=== PATIENT | male | born 1935 | race Caucasian/White ===

== ENCOUNTER → 2021-01-21 08:50 | Outpatient (BNVA) | payer OTHER, SELFPAY | PROVIDERS: Family Provider Family Medicine; Referring Provider Family Medicine; Visit Provider Specialist | DX: M17.11 Unilateral primary osteoarthritis, right knee (principal) | CPT/HCPCS: 73560; 73565 ==

== ENCOUNTER 2021-08-19 08:53 | Outpatient (CLI) | payer OTHER, SELFPAY ==
--- NOTE | 2021-08-19 09:01 | US_ITS ---
WS: [id number] ULTRASOUND ABDOMEN LIMITED CLINICAL INFORMATION: ELEVATED MATIAS COMPARISON: None. FINDINGS: Liver Size: Enlarged Craniocaudal length: 16.6 cm. Echogenicity: Coarse Surface nodularity: None. Mass (size and location): None. Bile ducts Intrahepatic ducts: Normal. Common bile duct diameter: 0.5 cm. Gallbladder Normal. Gallstones: None. Gallbladder sludge: None. Gallbladder wall thickening: None. Pericholecystic fluid: None. Sonographic Grajeda sign: Absent. Pancreas Not well seen due to bowel gas Right kidney: Several cortical cysts the largest measuring 9.4 x 8.3 x 4.8 cm along the inferior pole Hydronephrosis: None. Size: 11.3 cm x 5.4 cm x 6.2 cm. 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 US/US abdomen limited [id number] IMPRESSION: 1. Mild hepatomegaly diffuse fatty infiltration. 2. Normal gallbladder and common bile duct. 3. No hydronephrosis in RIGHT kidney. 4. 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 History of endoleak repair. Patient reportedly being followed in [place] f or endoleak. This can be further evaluated with CTA.
== END 2021-08-19 08:54 | disposition home or self-care (01) ==
LOC: RAD 08:54
PROVIDERS: Family Provider Family Medicine; Visit Provider Family Medicine
DX: R17 Unspecified jaundice (principal)
CPT/HCPCS: 76705

== ENCOUNTER → 2022-01-29 07:47 | Outpatient (BNVA) | payer MEDICARE, SELFPAY | PROVIDERS: Family Provider Family Medicine; PCP Family Medicine; Visit Provider Family Medicine | DX: Z00.00 Encounter for general adult medical examination without abnormal findings (principal); I10 Essential (primary) hypertension; E11.9 Type 2 diabetes mellitus without complications | CPT/HCPCS: 80053; 80061; 83036; 84443 ==

== ENCOUNTER → 2022-03-24 09:00 | Outpatient (BNVA) | payer OTHER, SELFPAY | PROVIDERS: Family Provider Family Medicine; PCP Family Medicine; Visit Provider Podiatrist Foot & Ankle Surgery | DX: E11.9 Type 2 diabetes mellitus without complications (principal); B35.1 Tinea unguium; G62.9 Polyneuropathy, unspecified; M20.41 Other hammer toe(s) (acquired), right foot; M20.42 Other hammer toe(s) (acquired), left foot; Z79.84 Long term (current) use of oral hypoglycemic drugs | CPT/HCPCS: 11721; 99204 ==

== ENCOUNTER → 2022-06-02 08:47 | Outpatient (BNVA) | payer OTHER, SELFPAY | PROVIDERS: Family Provider Family Medicine; PCP Family Medicine; Visit Provider Podiatrist Foot & Ankle Surgery | DX: E11.8 Type 2 diabetes mellitus with unspecified complications (principal); L98.9 Disorder of the skin and subcutaneous tissue, unspecified; B35.1 Tinea unguium; G62.9 Polyneuropathy, unspecified; M20.41 Other hammer toe(s) (acquired), right foot; M20.42 Other hammer toe(s) (acquired), left foot; Z79.84 Long term (current) use of oral hypoglycemic drugs | CPT/HCPCS: 11721 ==

== ENCOUNTER → 2022-08-11 09:48 | Outpatient (BNVA) | payer OTHER, SELFPAY | PROVIDERS: Family Provider Family Medicine; PCP Family Medicine; Visit Provider Podiatrist Foot & Ankle Surgery | DX: E11.9 Type 2 diabetes mellitus without complications (principal); B35.1 Tinea unguium; G62.9 Polyneuropathy, unspecified; M20.41 Other hammer toe(s) (acquired), right foot; M20.42 Other hammer toe(s) (acquired), left foot; Z79.84 Long term (current) use of oral hypoglycemic drugs | CPT/HCPCS: 11721 ==

== ENCOUNTER → 2022-08-12 08:22 | Outpatient (BNVA) | payer MEDICARE, SELFPAY | PROVIDERS: Family Provider Family Medicine; PCP Family Medicine; Visit Provider Family Medicine | DX: E11.9 Type 2 diabetes mellitus without complications (principal); I10 Essential (primary) hypertension; E03.9 Hypothyroidism, unspecified; E78.5 Hyperlipidemia, unspecified; M17.11 Unilateral primary osteoarthritis, right knee | CPT/HCPCS: 80053; 80061; 83036; 84443; 85025 ==

== ENCOUNTER → 2022-08-27 09:47 | Outpatient (BNVA) | payer MEDICARE, SELFPAY | PROVIDERS: Family Provider Family Medicine; PCP Family Medicine; Visit Provider Family Medicine | DX: C61 Malignant neoplasm of prostate (principal); E11.9 Type 2 diabetes mellitus without complications; E03.9 Hypothyroidism, unspecified; E78.5 Hyperlipidemia, unspecified | CPT/HCPCS: 84153 ==

== ENCOUNTER → 2022-10-16 07:56 | Outpatient (BNVA) | payer OTHER, SELFPAY | PROVIDERS: Family Provider Family Medicine; PCP Family Medicine; Visit Provider Podiatrist Foot & Ankle Surgery | DX: E11.22 Type 2 diabetes mellitus with diabetic chronic kidney disease (principal); Z79.84 Long term (current) use of oral hypoglycemic drugs; B35.1 Tinea unguium; G62.9 Polyneuropathy, unspecified; M20.41 Other hammer toe(s) (acquired), right foot; M20.42 Other hammer toe(s) (acquired), left foot | CPT/HCPCS: 11721 ==

== ENCOUNTER → 2022-10-29 07:57 | Outpatient (BNVA) | payer OTHER, SELFPAY | PROVIDERS: Family Provider Family Medicine; PCP Family Medicine; Visit Provider Dermatology | DX: L57.0 Actinic keratosis (principal); L82.0 Inflamed seborrheic keratosis; L82.1 Other seborrheic keratosis; L81.4 Other melanin hyperpigmentation | CPT/HCPCS: 11102; 17110; 99213 ==

== ENCOUNTER → 2023-01-05 09:14 | Outpatient (BNVA) | payer OTHER, SELFPAY | PROVIDERS: Family Provider Family Medicine; PCP Family Medicine; Visit Provider Podiatrist Foot & Ankle Surgery | DX: B35.1 Tinea unguium (principal); G62.9 Polyneuropathy, unspecified; M20.41 Other hammer toe(s) (acquired), right foot; M20.42 Other hammer toe(s) (acquired), left foot; E11.42 Type 2 diabetes mellitus with diabetic polyneuropathy; Z79.84 Long term (current) use of oral hypoglycemic drugs | CPT/HCPCS: 11721 ==

== ENCOUNTER → 2023-01-29 08:19 | Outpatient (BNVA) | payer OTHER, SELFPAY | PROVIDERS: Family Provider Family Medicine; PCP Family Medicine | DX: E03.9 Hypothyroidism, unspecified (principal); E11.9 Type 2 diabetes mellitus without complications; E78.5 Hyperlipidemia, unspecified; I10 Essential (primary) hypertension | CPT/HCPCS: 80053; 80061; 83036; 84153; 84443; 85025 ==

== ENCOUNTER 2023-02-24 07:13 | Outpatient (CLI) | payer MEDICARE, SELFPAY ==
--- NOTE | 2023-02-24 07:30 | US_ITS ---
WS: [id number] RIGHT UPPER QUADRANT ULTRASOUND HISTORY: Elevated bilirubin COMPARISON: 08/19/2021 Liver: 17.1 cm in length. Mildly enlarged liver. Coarse echotexture with increased attenuation throug hout the liver. No mass identified. No bile duct dilatation. Portal Vein: Normal hepatopetal flow with monophasic waveform. Gallbladder: Normally distended gallbladder with no stones or wall thickening. CBD: 0.4 cm Pancreas: Normal size and echogenicity. Right kidney: 10.9 cm in length. Normal size kidney. No hydronephrosis. There are 2 cystic masses ass ociated with the RIGHT kidney. The largest measures 6.1 x 3.8 x 5.0 cm. Similar cysts were identified on the study from 2008. Aorta and IVC: Patient has a known large [place] abdominal aneurysm status post endovascular grafting. The graft is patent. No periaortic hematoma. No ascites. IMPRESSION: 1. Mildly enlarged liver with hepatic steatosis. 2. Negative gallbladder. 3. Known large abdominal aortic aneurysm status post endovascular graft repair. Graft is patent. No p eriaortic hematoma. 4. RIGHT renal cyst. No obstruction.
== END 2023-02-24 07:14 | disposition home or self-care (01) ==
LOC: RAD 07:14
PROVIDERS: Family Provider Family Medicine; PCP Family Medicine; Visit Provider Family Medicine
DX: R16.0 Hepatomegaly, not elsewhere classified (principal); R17 Unspecified jaundice; K76.0 Fatty (change of) liver, not elsewhere classified
CPT/HCPCS: 76705

== ENCOUNTER → 2023-03-09 09:15 | Outpatient (BNVA) | payer MEDICARE, SELFPAY | PROVIDERS: Family Provider Family Medicine; PCP Family Medicine; Visit Provider Podiatrist Foot & Ankle Surgery | DX: B35.1 Tinea unguium (principal); G62.9 Polyneuropathy, unspecified; M20.41 Other hammer toe(s) (acquired), right foot; M20.42 Other hammer toe(s) (acquired), left foot; E11.42 Type 2 diabetes mellitus with diabetic polyneuropathy; Z79.84 Long term (current) use of oral hypoglycemic drugs | CPT/HCPCS: 11721 ==

== ENCOUNTER 2023-05-19 08:50 | Emergency (ER) | payer OTHER, SELFPAY ==
[2023-05-19 09:05] VITALS: BP 138/72; PULSE 79; RESP 12; O2SAT 95; BMI 23.7
--- NOTE | 2023-05-19 09:15 | ED_ITS ---
HPI - Extremity Injury (Lower) General: Chief Complaint: Extremity Injury, Lower Stated Complaint[facility] Time Seen by Provider: 05/19/23 09:15 Source: patient and family () Mode of arrival: wheelchair Limitations: no limitations History of Present Illness: Patient is a nice 87-year-old male who presents to ED today along with his for evaluation of a right foot and ankle injury that he sustained 9 days ago. Patient states he was getting up from a recliner when his legs were crossed. He states when he took off walking he then became tangled up in his legs causing him to fall. Patient believes he twisted his right ankle during the fall. He initially thought symptoms were improving thus delaying medical evaluation however thinks he may have re-tweaked his ankle yesterday as it began swelling again. [facility]. Patient reports swelling around the right ankle and foot. He has not noticed any other swelling to the extremity. No calf pain. He has not noticed any color or temperature changes to the extremity. Patient has been ambulatory on the extremity since the fall. MD complaint: ankle injury and foot injury Onset (ago): day(s) (9 days ago) Injury: Right: ankle and foot Place: home Severity: moderate Relieving factors: immobilization Exacerbating factors: weight bearing, movement and palpation Context: fall Associated symptoms: Reports no associated symptoms Other symptoms: none Review of Systems Card: Denies: chest pain Resp: Denies: dyspnea Musc: Reports: extremity pain (R foot), extremity swelling (R foot), joint pain (R ankle) and joint swelling (R ankle); Denies: neck pain, back pain, joint redness or joint warmth Skin/Breast: Denies: rash Neuro: Denies: numbness in extremities, weakness in extremities or sensory changes PFSH ED PFSH: Medical History Macular degeneration Type 2 diabetes mellitus Hypertension Hypothyroidism Hyperlipidemia Surgical History History of meniscectomy of right knee Social History Smoking and tobacco/nicotine status: former use of tobacco/nicotine Physical Exam 2 Const: COMMON NORMALS: no acute distress, average body habitus, patient oriented x3, no limitations, healthy appearing, alert and well nourished GENERAL APPEARANCE: cooperative ORIENTATION/CONSCIOUSNESS: Yes awake, Yes oriented to person, Yes oriented to place and Yes oriented to time Resp: COMMON NORMALS: normal respiratory effort and clear to auscultation bilaterally AUSCULTATION: clear to auscultation bilaterally Cardio: COMMON NORMALS: regular rate and regular rhythm RATE: regular rate RHYTHM: regular rhythm Back/Pelvis: COMMON NORMALS: thoracic and lumbar spine normal to inspection Extremity: COMMON NORMALS: capillary refill normal, no clubbing, cyanosis or edema, no calf tenderness and no pedal edema GENERAL: Yes normal exam except as noted RIGHT LOWER EXTREMITY: Yes foot & digits and Yes foot & digits OTHER: swelling surrounding R ankle joint/dorsal R foot with most of pain being to lateral ankle; cap refill/pulses/sensation all intact; no calf pain/swelling/negative Erica's Neuro: COMMON NORMALS: patient oriented x3, moves all extremities, no focal motor deficits and no sensory deficits noted SENSORIUM/ORIENTATION: Yes alert, Yes oriented to person, Yes oriented to place and Yes oriented to time Skin: COMMON NORMALS: no rashes or lesions noted GENERAL SKIN EXAM: no rashes or lesions noted Course Vital Signs: Vital signs: Vital Signs Pulse Rate 79 05/19/23 09:05 Respiratory Rate 12 05/19/23 09:05 Blood Pressure 138/72 05/19/23 09:05 Pulse Oximetry 95 05/19/23 09:05 Oxygen Delivery Me thod Room Air 05/19/23 09:05 MDM - Extremity Injury (Lower) Medical Decision Making Patient here for continued right ankle and foot pain following a fall 9 days ago. XR of the foot and ankle obtained. On patient's AP view of the right foot, he appears to have a small avulsion fracture off of his lateral malleolus. He is tender here on exam therefore he will be splinted and referred to orthopedics. Patient is legally blind and not a candidate for crutches to be nonweightbearing. He refuses a wheelchair. Patient will be splinted with recommendations for limited weightbearing only as needed. Recommend ice and elevation. He does not want pain medications. Case management will reach out to him and set him up with his orthopedic appointment. Lab Data Radiology Impressions Ankle X-Ray 05/19/23 09:22 IMPRESSION: No acute findings. Foot X-Ray 05/19/23 09:22 IMPRESSION: No acute findings. ADDENDUM: 05/19/23 1010 Addendum to report additional finding of tiny calcific density adjacent to the lateral malleolus, which may represent small cortical avulsion fracture. This was discussed with Ale Beckham at 05/19/2023 10:07 AM [employer]. All radiology interpretation(s) finalized by discharge Discharge Plan Discharge Patient Disposition: Home Clinical Impression: Avulsion fracture of lateral malleolus Qualifiers: Encounter type: initial encounter Fracture type: closed Laterality: right Qualified Code(s): S82.61XA - Displaced fracture of lateral malleolus of right fibula, initial encounter for closed fracture Condition: Stable Prescriptions: No Action metformin 500 mg tablet 500 mg PO BID levothyroxine 75 mcg capsule 75 mcg PO DAILY pioglitazone [Actos] 15 mg tablet 15 mg PO DAILY multivitamin Tablet 1 tab PO DAILY glimepiride 4 mg tablet 4 mg PO BID (DME) Diabetic Shoes with 3 pairs of inserts See Rx Instructions .Route .MEDSUPPLY Qty: 1 0RF Rx Instructions: As directed to HOME lovastatin 10 mg tablet 10 mg PO DAILY clobetasol 0.05 % ointment 1 applic topical BID 14 Days Qty: 60 2RF Rx Instructions: Apply to affected area no more than two weeks per month. Not for face or skin folds. metoprolol succinate 50 mg tablet extended release 24 hr 50 mg PO BID Qty: 180 3RF Discharge Orders: Discharge ED (Routine); Ordered 05/19/23 Ordered By: Ale Pham Referrals: Peter Vidales MD [Primary Care Provider] - Activity Restrictions/Additional Instructions: As we discussed case management should contact you shortly to help set you up with your follow-up orthopedic appointment. I would like you to ice and elevate the extremity to help with swelling. Limited weightbearing on the extremity until told otherwise by orthopedics. Coding Level of Care Code ED Superintendent Custodian Janitor for Zaira Conrad
--- NOTE | 2023-05-19 09:22 | XRR_ITS ---
PROCEDURE INFORMATION: Exam: XR Right Foot Exam date and time: 05/19/2023 9:27 AM Age: 87 years old Clinical indication: Injury or trauma; Fall; Blunt trauma; Foot; Right; Additional info: Injury/fall TECHNIQUE: Imaging protocol: Radiologic exam of the right foot. Views: 3 or more views. COMPARISON: CR XR ankle RT min 3V* [id number] 05/19/2023 9:27 AM FINDINGS: Bones/joints: No acute fracture or dislocation. Joint spacing and alignment are maintained. Small Achilles insertional enthesophyte. Soft tissues: Unremarkable. Vasculature: Peripheral arterial calcifications. XR/XR foot RT min 3V* [id number] IMPRESSION: No acute findings.
--- NOTE | 2023-05-19 09:22 | XRR_ITS ---
PROCEDURE INFORMATION: Exam: XR Right Ankle Exam date and time: 05/19/2023 9:27 AM Age: 87 years old Clinical indication: Injury or trauma; Fall; Blunt trauma; Ankle; Right; Additional info: Injury/fall TECHNIQUE: Imaging protocol: Radiologic exam of the right ankle. Views: 3 or more views. COMPARISON: CR XR foot RT min 3V* [id number] 05/19/2023 9:27 AM FINDINGS: Bones/joints: No acute fracture or dislocation. Joint spacing and alignment are maintained. Small Achilles insertional enthesophyte. Soft tissues: Unremarkable. Vasculature: Peripheral arterial calcifications. XR/XR ankle RT min 3V* [id number] IMPRESSION: No acute findings.
--- NOTE | 2023-05-19 10:42 | DCPLANNER ---
Message sent to Ortho for a follow up Lateral mall avulsion fx
[2023-05-19 10:47] VITALS: PULSE 81; O2SAT 96
== END 2023-05-19 10:49 | disposition home or self-care (01) ==
PROVIDERS: Emergency Provider Physician Assistant; PCP Family Medicine
DX: S82.61XA Displaced fracture of lateral malleolus of right fibula, initial encounter for closed fracture (principal); Z79.84 Long term (current) use of oral hypoglycemic drugs; H35.30 Unspecified macular degeneration; E11.9 Type 2 diabetes mellitus without complications; I10 Essential (primary) hypertension; E78.5 Hyperlipidemia, unspecified; Z87.891 Personal history of nicotine dependence; W01.0XXA Fall on same level from slipping, tripping and stumbling without subsequent striking against object, initial encounter
CPT/HCPCS: 73610; 73630; 99283

== ENCOUNTER → 2023-05-28 11:17 | Outpatient (BNVA) | payer OTHER, SELFPAY | PROVIDERS: PCP Family Medicine; Visit Provider Podiatrist Foot & Ankle Surgery | DX: E11.42 Type 2 diabetes mellitus with diabetic polyneuropathy; B35.1 Tinea unguium; G62.9 Polyneuropathy, unspecified; M20.41 Other hammer toe(s) (acquired), right foot; M20.42 Other hammer toe(s) (acquired), left foot; Z79.84 Long term (current) use of oral hypoglycemic drugs | CPT/HCPCS: 11721; 73590; 99213 ==

== ENCOUNTER → 2023-07-31 08:07 | Outpatient (BNVA) | payer OTHER, SELFPAY | PROVIDERS: PCP Family Medicine; Visit Provider Family Medicine | DX: E11.9 Type 2 diabetes mellitus without complications; E03.9 Hypothyroidism, unspecified; I10 Essential (primary) hypertension; R53.83 Other fatigue; M17.11 Unilateral primary osteoarthritis, right knee; E78.5 Hyperlipidemia, unspecified; B35.1 Tinea unguium; G62.9 Polyneuropathy, unspecified; M20.41 Other hammer toe(s) (acquired), right foot; M20.42 Other hammer toe(s) (acquired), left foot; R17 Unspecified jaundice; J06.9 Acute upper respiratory infection, unspecified | CPT/HCPCS: 80053; 80061; 83036; 84443; 85025 ==

== ENCOUNTER → 2023-08-03 13:29 | Outpatient (BNVA) | payer OTHER, SELFPAY | PROVIDERS: PCP Family Medicine; Visit Provider Podiatrist Foot & Ankle Surgery | DX: B35.1 Tinea unguium (principal); G62.9 Polyneuropathy, unspecified; M20.41 Other hammer toe(s) (acquired), right foot; M20.42 Other hammer toe(s) (acquired), left foot; E11.42 Type 2 diabetes mellitus with diabetic polyneuropathy | CPT/HCPCS: 11721 ==

== ENCOUNTER → 2023-10-12 09:30 | Outpatient (BNVA) | payer OTHER, SELFPAY | PROVIDERS: PCP Family Medicine; Visit Provider Podiatrist Foot & Ankle Surgery | DX: B35.1 Tinea unguium (principal); G62.9 Polyneuropathy, unspecified; M20.41 Other hammer toe(s) (acquired), right foot; M20.42 Other hammer toe(s) (acquired), left foot; E11.42 Type 2 diabetes mellitus with diabetic polyneuropathy; M79.604 Pain in right leg; Z79.84 Long term (current) use of oral hypoglycemic drugs | CPT/HCPCS: 11721 ==

== ENCOUNTER → 2023-12-14 08:59 | Outpatient (BNVA) | payer OTHER, SELFPAY | PROVIDERS: PCP Family Medicine; Visit Provider Podiatrist Foot & Ankle Surgery | DX: B35.1 Tinea unguium (principal); G62.9 Polyneuropathy, unspecified; M20.41 Other hammer toe(s) (acquired), right foot; M20.42 Other hammer toe(s) (acquired), left foot; M79.604 Pain in right leg; E11.42 Type 2 diabetes mellitus with diabetic polyneuropathy | CPT/HCPCS: 11055; 11721 ==

== ENCOUNTER 2023-12-18 18:48 | Emergency (ER) | payer OTHER, MEDICARE, SELFPAY | END 2023-12-18 20:28 | disposition left against medical advice (07) | PROVIDERS: Emergency Provider Family Medicine; PCP Family Medicine | DX: Z53.21 Procedure and treatment not carried out due to patient leaving prior to being seen by health care provider (principal) ==

== ENCOUNTER 2023-12-19 07:05 | Emergency (ER) | payer OTHER, MEDICARE, SELFPAY ==
--- NOTE | 2023-12-19 07:09 | XRR_ITS ---
PROCEDURE INFORMATION: Exam: XR Right Humerus Exam date and time: 12/19/2023 7:52 AM Age: 88 years old Clinical indication: Injury or trauma; Fall; Blunt trauma (contusions or hematomas); Arm, upper; Right TECHNIQUE: Imaging protocol: Radiologic exam of the right humerus. Views: 2 or more views. COMPARISON: CR (UP EXM, ) 12/19/2023 7:52 AM FINDINGS: Bones/joints: Traction changes lateral humeral epicondyle. Rotator cuff calcific tendinosis around the greater tuberosity. Mild degenerative disease of the right acromioclavicular joint and right glenohumeral joint. Apparent narrowing of the right subacromial distance suggestive of chronic rotator cuff disease. Soft tissues: Normal. XR/[place] [id number] IMPRESSION: No acute fracture or dislocation.
--- NOTE | 2023-12-19 07:09 | XRR_ITS ---
PROCEDURE INFORMATION: Exam: XR Right Forearm Exam date and time: 12/19/2023 7:52 AM Age: 88 years old Clinical indication: Pain; Lower or forearm; Right; Additional info: Trauma TECHNIQUE: Imaging protocol: Radiologic exam of the right forearm. Views: 2 views. COMPARISON: CR (UP EXM, ) 12/19/2023 7:52 AM FINDINGS: Bones/joints: Moderate degenerative disease of the 1st carpometacarpal joint and mild degenerative of the STT joint. No acute fracture or dislocation. Soft tissues: Normal. Vasculature: Vascular calcifications. XR/XR forearm RT 2V [id number] IMPRESSION: No acute fracture or dislocation.
[2023-12-19 07:18] VITALS: BP 114/64; PULSE 75; RESP 18; TEMP 36.6; O2SAT 95; BMI 23.7
--- NOTE | 2023-12-19 07:28 | XRR_ITS ---
PROCEDURE INFORMATION: Exam: XR Right Elbow Exam date and time: 12/19/2023 7:52 AM Age: 88 years old Clinical indication: Injury or trauma; Fall; Laceration; Elbow; Right TECHNIQUE: Imaging protocol: Radiologic exam of the right elbow. Views: 3 or more views. COMPARISON: CR (UP EX, ) 12/19/2023 7:52 AM FINDINGS: Bones/joints: No elbow joint effusion. No acute fracture or dislocation. Soft tissues: Normal. Vasculature: Vascular calcifications. XR/XR elbow RT min 3V* [id number] IMPRESSION: No acute fracture or dislocation.
--- NOTE | 2023-12-19 07:47 | W.ED.FALL ---
HPI - Fall General: Chief Complaint: Fall Stated Complaint: Fell on right side--arm Time Seen by Provider: 12/19/23 07:05 History of Present Illness: 88-year-old male who fell at about 230 yesterday afternoon. He is complaining of skin tear to his right elbow he denies striking his head denies loss consciousness complaining of pain with pronation and supination pain with is at the distal portion of the elbow. Denies any other injury Associated symptoms-after fall: Denies abdominal pain, chest pain or neck pain Related Data Home Medications Medication Instructions Recorded Confirmed metformin 500 mg tablet 500 mg PO BID 01/21/21 12/14/23 levothyroxine 75 mcg capsule 75 mcg PO DAILY 01/22/21 12/14/23 multivitamin 1 tab PO DAILY 01/22/21 12/14/23 pioglitazone 15 mg tablet (Actos) 15 mg PO DAILY 01/22/21 12/14/23 glimepiride 4 mg tablet 4 mg PO BID 02/05/22 12/14/23 lovastatin 10 mg tablet 10 mg PO DAILY 02/10/23 12/14/23 Previous Rx's Medication Instructions Recorded clobetasol 0.05 % topical ointment 1 applic topical BID 2 weeks #60 07/18/22 grams Diabetic Shoes with 3 pairs of #1 ea 10/16/22 inserts metoprolol succinate 50 mg 50 mg PO BID #180 tabs 03/01/23 tablet,extended release 24 hr Allergies Allergy/AdvReac Type Severity Reaction Status Date / Time atorvastatin [From Lipitor] AdvReac Intermediate Unknown Verified 12/14/23 09:05 Review of Systems Const: Denies: fever(s) or chills Card: Denies: chest pain Resp: Denies: dyspnea GI: Denies: abdominal pain : Denies: dysuria, urinary frequency or urinary urgency Musc: Denies: neck pain or back pain Skin/Breast: Denies: rash PFSH ED PFSH: Medical History Macular degeneration Type 2 diabetes mellitus Hypertension Hypothyroidism Hyperlipidemia Surgical History History of meniscectomy of right knee Social History (Reviewed 12/19/23 @ 07:48 by RONI Perez Smoking and tobacco/nicotine status: unknown if used tobacco/nicotine Physical Exam Const: COMMON NORMALS: no acute distress GENERAL APPEARANCE: cooperative and comfortable ORIENTATION/CONSCIOUSNESS: Yes awake HENMT: COMMON NORMALS: normocephalic and atraumatic HEAD & SCALP: normocephalic and atraumatic Resp: COMMON NORMALS: normal respiratory effort, No retractions, No use of accessory muscles and clear to auscultation bilaterally AUSCULTATION: clear to auscultation bilaterally Cardio: COMMON NORMALS: regular rate, regular rhythm and No murmurs present (Cardio) RATE: regular rate RHYTHM: regular rhythm GI: COMMON NORMALS: Soft to palpation and No hepatosplenomegaly present AUSCULTATION: Yes normoactive bowel sounds PALPATION: Yes Soft to palpation, No Tenderness to palpation present (GI), No Guarding due to palpation present (GI) and Yes No hepatosplenomegaly present Extremity: COMMON NORMALS: normal to inspection, capillary refill normal, no clubbing, cyanosis or edema, no calf tenderness and no pedal edema Skin: COMMON NORMALS: no rashes or lesions noted GENERAL SKIN EXAM: no rashes or lesions noted Course Vital Signs: Vital signs: Vital Signs Temperature 97.8 F 12/19/23 07:18 Pulse Rate 75 12/19/23 07:18 Respiratory Rate 18 12/19/23 07:18 Blood Pressure 114/64 12/19/23 07:18 Pulse Oximetry 95 12/19/23 07:18 Oxygen Delivery Me thod Room Air 12/19/23 07:18 MDM - Fall Medical Decision Making X-ray of the forearm elbow and humerus on the right did not show any acute fractures his tetanus is updated. No other injury. Suspect he may have sprained the elbow. He has no significant amount of swelling laceration is not full-thickness does not require suturing. Ice Tylenol ibuprofen follow-up if not improving Lab Data Radiology Impressions Forearm X-Ray 12/19/23 07:09 IMPRESSION: No acute fracture or dislocation. Humerus X-Ray 12/19/23 07:09 IMPRESSION: No acute fracture or dislocation. Elbow X-Ray 12/19/23 07:28 IMPRESSION: No acute fracture or dislocation. All radiology interpretation(s) finalized by discharge Discharge Plan Discharge Patient Disposition: Home Clinical Impression: Fall, Elbow pain, right Condition: Stable Prescriptions: No Action metformin 500 mg tablet 500 mg PO BID levothyroxine 75 mcg capsule 75 mcg PO DAILY pioglitazone [Actos] 15 mg tablet 15 mg PO DAILY multivitamin Tablet 1 tab PO DAILY glimepiride 4 mg tablet 4 mg PO BID (DME) Diabetic Shoes with 3 pairs of inserts See Rx Instructions .Route .MEDSUPPLY Qty: 1 0RF Rx Instructions: As directed to HOME lovastatin 10 mg tablet 10 mg PO DAILY clobetasol 0.05 % ointment 1 applic topical BID 14 Days Qty: 60 2RF Rx Instructions: Apply to affected area no more than two weeks per month. Not for face or skin folds. metoprolol succinate 50 mg tablet extended release 24 hr 50 mg PO BID Qty: 180 3RF Discharge Orders: Discharge ED (Routine); Ordered 12/19/23 Ordered By: Aquilino Galvez Referrals: Peter Vidales MD [Primary Care Provider] - Discharge Diet: Usual diet Discharge Activity: Increase activity as tolerated Patient Instructions: Opioid Safety, Pain Management Activity Restrictions/Additional Instructions: Thank you for choosing [facility] for your healthcare needs today. It is very important that you follow up as instructed or that you return to the Emergency Department should you have concerns or if your condition changes or worsens in any way. You are seen today after a fall. X-rays did not show any acute fractures. Your tetanus was updated. Recommend wearing your lifeline at all times so immediate help can be available after a fall. Coding Level of Care Code ED Cutting And [employer]asing Press Operator for Zaira Conrad
[2023-12-19] MEDS: tetanus-diphtheria tox (adult) 0.5 mL SDV IM (09:01)
== END 2023-12-19 09:03 | disposition home or self-care (01) ==
PROVIDERS: Emergency Provider Family Medicine; PCP Family Medicine
DX: M25.521 Pain in right elbow (principal); Z79.84 Long term (current) use of oral hypoglycemic drugs; E11.9 Type 2 diabetes mellitus without complications; I10 Essential (primary) hypertension; E78.5 Hyperlipidemia, unspecified; H35.30 Unspecified macular degeneration; Z23 Encounter for immunization
CPT/HCPCS: 73060; 73080; 73090; 90471; 90714; 99283

== ENCOUNTER → 2024-02-02 07:52 | Outpatient (BNVA) | payer OTHER, SELFPAY | PROVIDERS: PCP Family Medicine; Visit Provider Family Medicine | DX: N18.9 Chronic kidney disease, unspecified (principal); E78.5 Hyperlipidemia, unspecified; E03.9 Hypothyroidism, unspecified; E11.9 Type 2 diabetes mellitus without complications; I10 Essential (primary) hypertension; R53.83 Other fatigue | CPT/HCPCS: 80053; 80061; 83036; 84443; 85025 ==

== ENCOUNTER → 2024-04-21 09:00 | Outpatient (BNVA) | payer OTHER, SELFPAY | PROVIDERS: PCP Family Medicine; Visit Provider Podiatrist Foot & Ankle Surgery | DX: B35.1 Tinea unguium (principal); G62.9 Polyneuropathy, unspecified; M20.41 Other hammer toe(s) (acquired), right foot; M20.42 Other hammer toe(s) (acquired), left foot; M79.604 Pain in right leg; E11.42 Type 2 diabetes mellitus with diabetic polyneuropathy; L85.1 Acquired keratosis [keratoderma] palmaris et plantaris; Z79.84 Long term (current) use of oral hypoglycemic drugs | CPT/HCPCS: 11056; 11721 ==

== ENCOUNTER 2024-05-14 15:17 | Observation (INO) | payer OTHER, SELFPAY ==
[2024-05-14] VITALS (17 sets, daily range): BP systolic 106–166; BP diastolic 52–75; PULSE 55–84; RESP 12–27; TEMP 36.4–36.6; O2SAT 89–98; BMI 23.6
--- NOTE | 2024-05-14 15:18 | ECG_ITS ---
[facility]24[facility]14 Pat Name: Brandan Escudero Department: Room: Gender: Male [employer] Radar Operator: : [id number] Requested By: Jorge Luis Ribeiro Order Number: [id number] Samuels MD: Wayne Street M.D. Measurements Intervals [place] Rate: 75 P: 0 IN: 0 QRS: -16 QRSD: 101 T: 29 QT: 348 QTc: 391 Interpretive Statements SINUS RHYTHM WITH PACs Compared to ECG 05/25/2018 07:19:57 First degree AV block no longer present Left-axis deviation no longer present Electronically Signed On 05-14-2024 22:57:49 SENIOR ATTORNEY by Wayne [address] M.D. [email or web address]
--- NOTE | 2024-05-14 15:33 | XRR_ITS ---
PROCEDURE INFORMATION: Exam: XR Chest Exam date and time: 05/14/2024 3:46 PM Age: 88 years old Clinical indication: Pain; Chest pressure; Additional info: Chest pain TECHNIQUE: Imaging protocol: Radiologic exam of the chest. Views: 1 view. COMPARISON: CR XR chest 1V [id number] 05/25/2018 2:37 AM FINDINGS: Lungs: There is mild pulmonary hypoinflation. No focal consolidation or randy pulmonary edema is seen. Pleural spaces: No significant pleural effusion or pneumothorax. Heart/Mediastinum: Unremarkable. No cardiomegaly. Bones/joints: There are degenerative changes involving the thoracic spine. XR/XR chest 1V portable [id number] IMPRESSION: 1. Mild pulmonary hypoinflation. 2. No radiographic evidence for acute cardiopulmonary disease.
--- NOTE | 2024-05-14 15:59 | ED_ITS ---
HPI - Chest Pain 2 General: Chief Complaint: Chest Pain Stated Complaint: chest pains Time Seen by Provider: 05/14/24 15:32 Source: patient and family History of Present Illness: Patient is a very well-appearing 88-year-old gentleman who presents to the ER with complaint of chest pain. He states that he was walking around the block with his as they do normally almost on a daily basis whenever he began having a sharp left-sided chest pain that radiated to his left arm. He went inside to sit down and rest. His stated that he seemed pretty pale at that time. His chest pain subsided briefly and recurred however is absent now. He did have some associated shortness of breath. He denies any radiation of pain into his back. No nausea vomiting or diaphoresis. He has had some pain from time to time similar to this but thought it was arthritis related. No history of coronary disease. MD complaint: chest pain and chest heaviness Associated symptoms: Deny abdominal pain, diaphoresis, dyspnea, fever(s), nausea or vomiting Related Data Home Medications Medication Instructions Recorded Confirmed metformin 500 mg tablet 500 mg PO BID 01/21/21 05/14/24 multivitamin 1 tab PO DAILY 01/22/21 05/14/24 pioglitazone 15 mg tablet (Actos) 15 mg PO DAILY 01/22/21 05/14/24 glimepiride 4 mg tablet 4 mg PO BID 02/05/22 05/14/24 aspirin 81 mg tablet,delayed 81 mg PO QPM 05/14/24 05/14/24 release cyanocobalamin (vitamin B-12) 1,000 mcg PO DAILY 05/14/24 05/14/24 1,000 mcg tablet (Vitamin B-12) cyanocobalamin (vitamin B-12) 5,000 mcg sublingual DAILY 05/14/24 05/14/24 5,000 mcg sublingual tablet (Vitamin B-12) prsxcocmjoa-lssvpkqhe-kblh205-hyal 1 tab PO QPM 05/14/24 05/14/24 750 mg-100 mg-125 mg-1.65 mg tablet (Glucosamine Chondroit Complx Advan) levothyroxine 125 mcg tablet 125 mcg PO QAM 05/14/24 05/14/24 lisinopril 5 mg tablet 5 mg PO QAM 05/14/24 05/14/24 lutein 20 mg tablet 20 mg PO QPM 05/14/24 05/14/24 omeprazole 20 mg capsule,delayed 20 mg PO DAILY 05/14/24 05/14/24 release vitamins A,C,L-wiod-zajzqa 2,148 1 tab PO QPM 05/14/24 05/14/24 mcg-113 mg-45 mg-17.4 mg tablet (PreserVision AREDS) Previous Rx's Medication Instructions Recorded Diabetic Shoes with 3 pairs of #1 ea 10/16/22 inserts metoprolol succinate 50 mg 50 mg PO BID #180 tabs 03/01/23 tablet,extended release 24 hr Allergies Allergy/AdvReac Type Severity Reaction Status Date / Time atorvastatin [From Lipitor] AdvReac Intermediate Unknown Verified 05/14/24 15:28 Review of Systems 2 Const: Denies: fever(s), chills or diaphoresis Card: Denies: chest pain Resp: Denies: dyspnea GI: Denies: abdominal pain, nausea or vomiting Skin/Breast: Denies: rash Neuro: Denies: headache(s) PFSH ED 2 PFSH: Medical History Macular degeneration Type 2 diabetes mellitus Hypertension Hypothyroidism Hyperlipidemia Surgical History History of meniscectomy of right knee Social History Smoking and tobacco/nicotine status: unknown if used tobacco/nicotine Physical Exam 2 Const: COMMON NORMALS: no acute distress, average body habitus, alert and well nourished GENERAL APPEARANCE: cooperative ORIENTATION/CONSCIOUSNESS: Yes awake HENMT: COMMON NORMALS: normocephalic and atraumatic HEAD & SCALP: n ormocephalic and atraumatic Eye: COMMON NORMALS: conjunctivae normal CONJUNCTIVA: Yes conjunctivae normal Neck/C-Spine: GENERAL: Yes normal visual inspection Resp: COMMON NORMALS: normal respiratory effort, No retractions and No use of accessory muscles Cardio: COMMON NORMALS: regular rhythm and Peripheral pulses 2+ throughout RHYTHM: regular rhythm PERIPHERAL PULSES: Peripheral pulses 2+ throughout GI: COMMON NORMALS: Soft to palpation and non-tender PALPATION: Yes Soft to palpation Extremity: COMMON NORMALS: full ROM and no pedal edema Neuro: COMMON NORMALS: no focal motor deficits SENSORIUM/ORIENTATION: Yes alert Skin: COMMON NORMALS: no rashes or lesions noted GENERAL SKIN EXAM: no rashes or lesions noted Course 2 Vital Signs: Vital signs: Vital Signs Temperature 97.9 F 05/14/24 15:24 Pulse Rate 55 L 05/14/24 17:00 Respiratory Rate 23 H 05/14/24 17:00 Blood Pressure 106/52 05/14/24 17:00 Pulse Oximetry 93 05/14/24 17:00 Oxygen Delivery Me thod Room Air 05/14/24 15:24 MDM - Chest Pain Medical Decision Making Patient is a nontoxic 88-year-old male who presents to the ER for evaluation of substernal chest pain that was associate with exertion. EKG is sinus rhythm without any ischemic ST elevation or depression. First-degree AV block was noted. Chest x-ray shows some mild pulmonary hypoinflation. Troponin was normal. D-dimer was significant elevated and a CTA of the chest was obtained. No evidence of PE. Patient has been pain-free here. He received 3 and 24 mg aspirin. He is somewhat hyperglycemic with a blood sugar 10 or 54. Patient has multiple risk factors and given his onset of pain with exertion I feel it is reasonable for admission for observation. I spoke with Dr. Mejia with the hospitalist service who will admit. Differential Diagnosis Likely acute massive pulmonary embolism, acute respiratory failure and acute myocardial infarction Lab Data I reviewed the patient's lab results. 05/14/24 15:40 05/14/24 15:40 Radiology Impressions Chest X-Ray 05/14/24 15:33 IMPRESSION: 1. Mild pulmonary hypoinflation. 2. No radiographic evidence for acute cardiopulmonary disease. Chest CTA 05/14/24 17:22 IMPRESSION: 1. 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 2. No dense focal consolidation. 3. No pulmonary embolism detected. 4. Moderate coronary arterial calcification. 5. Very slight surface nodularity to the liver and prominence of the caudate lobe suspicious for cirrhosis or other hepatic parenchymal disease. Please correlate clinically. 6. Several bilateral renal cysts including a suspected subcentimeter hemorrhagic cyst on the right. The kidneys are incompletely imaged on this exam. 7. Tiny nonobstructing left renal calculi. COMMENTS: Consistent with the [employer]'s Incidental Findings Committee white paper (J Am Taya Radiol 2018): Any incidental renal lesion less than 1 cm or classified as too small to characterize, or any incidental cystic renal lesion characterized as simple-appearing, is likely benign. No follow-up imaging is recommended for these lesions per consensus recommendations based on imaging criteria. Laboratory Results WBC 4.71 10^3/uL (3.29-11.43) 05/14/24 15:40 RBC 4.47 10^6/uL (3.85-5.65) 05/14/24 15:40 Hgb 13.50 g/dL (11.27-16.99) 05/14/24 15:40 Hct 40.7 % (37-53) 05/14/24 15:40 MCV 91.1 fl (82-101) 05/14/24 15:40 MCH 30.2 pg (27-33) 05/14/24 15:40 MCHC 33.2 g/dL (30-55) 05/14/24 15:40 RDW 13.5 % (12.1-15.1) 05/14/24 15:40 Plt Count 140 10^3/cmm (157-399) L 05/14/24 15:40 MPV 9.7 fL (7.4-10.4) 05/14/24 15:40 Neut % (Auto) 59.7 % 05/14/24 15:40 Lymph % (Auto) 27.2 % 05/14/24 15:40 Smith % (Auto) 7.4 % 05/14/24 15:40 Eos % (Auto) 4.5 % 05/14/24 15:40 Baso % (Auto) 0.8 % 05/14/24 15:40 Neut # (Auto) 2.81 10^3/uL (1.8-7.7) 05/14/24 15:40 Lymph # (Auto) 1.3 10^3/uL (0.8-4.8) 05/14/24 15:40 Smith # (Auto) 0.4 10^3/uL (0.2-0.9) 05/14/24 15:40 Eos # (Auto) 0.2 10^3/uL (0.0-0.8) 05/14/24 15:40 Baso # (Auto) 0.0 10^3/uL (0.0-0.1) 05/14/24 15:40 Nucleated RBC % (auto) 0 % 05/14/24 15:40 Nucleated RBCs # 0.0 /100WBC 05/14/24 15:40 D-Dimer 6.17 ug/mLFEU (0-0.59) H 05/14/24 15:40 Sodium 136 mmol/L (136-145) 05/14/24 15:40 Potassium 4.7 mmol/L (3.5-5.1) 05/14/24 15:40 Chloride 101 mmol/L (98-107) 05/14/24 15:40 Carbon Dioxide 25 mmol/L (22-29) 05/14/24 15:40 Anion Gap 14.7 (5-19) 05/14/24 15:40 BUN 31 mg/dL (8-23) H 05/14/24 15:40 Creatinine 1.4 mg/dL (0.7-1.2) H 05/14/24 15:40 GFR Calculation Not Reportable 05/14/24 15:40 Glucose 254 mg/dL (65-115) H 05/14/24 15:40 Calculated Osmolality 297 mOsm/kg (285-295) H 05/14/24 15:40 Calcium 9.3 mg/dL (8.5-10.5) 05/14/24 15:40 Total Bilirubin 1.1 mg/dL (0.15-1.2) 05/14/24 15:40 AST 18 U/L (0-40) 05/14/24 15:40 ALT 10 U/L (0-41) 05/14/24 15:40 Alkaline Phosphatase 79 U/L (40-130) 05/14/24 15:40 Troponin T Baseline 15 ng/L (0-15) 05/14/24 15:40 Troponin T 120 Minute 12.81 ng/L (0-15) 05/14/24 17:25 Delta Troponin T -2.19 ABS# (0-10) L 05/14/24 17:25 NT-Pro-B Natriuret Pep 278 pg/mL (0-450) 05/14/24 15:40 Total Protein 6.2 g/dL (6.6-8.7) L 05/14/24 15:40 Albumin 4.2 g/dL (3.5-5.2) 05/14/24 15:40 Globulin 2.0 g/dL (1.3-4.6) 05/14/24 15:40 All radiology interpretation(s) finalized by discharge Discharge Plan Discharge Patient Disposition: Placed in Observation Clinical Impression: Chest pain Condition: Stable Prescriptions: No Action metformin 500 mg tablet 500 mg PO BID pioglitazone [Actos] 15 mg tablet 15 mg PO DAILY multivitamin Tablet 1 tab PO DAILY glimepiride 4 mg tablet 4 mg PO BID (DME) Diabetic Shoes with 3 pairs of inserts See Rx Instructions .Route .MEDSUPPLY Qty: 1 0RF Rx Instructions: As directed to HOME metoprolol succinate 50 mg tablet extended release 24 hr 50 mg PO BID Qty: 180 3RF cyanocobalamin (vitamin B-12) [Vitamin B-12] 1,000 mcg Tablet 1,000 mcg PO DAILY aspirin [Aspir-81] 81 mg Tablet,Delayed Release (Dr/Ec) 81 mg PO QPM levothyroxine 125 mcg Tablet 125 mcg PO QAM omeprazole 20 mg Capsule,Delayed Release(Dr/Ec) 20 mg PO DAILY lisinopril 5 mg Tablet 5 mg PO QAM Glucos Chond Cplx Advanced 750 mg-100 mg- 125 mg-1.65 mg Tablet 1 tab PO QPM PreserVision AREDS 2,148 mcg-113 mg-45 mg-17.4mg Tablet 1 tab PO QPM cyanocobalamin (vitamin B-12) [Vitamin B-12] 5,000 mcg Tablet, Sublingual 5,000 mcg SUBLINGUAL DAILY lutein 20 mg Tablet 20 mg PO QPM Rx Instructions: give with meal/snack Referrals: Peter Vidales MD [Primary Care Provider] - Coding Level of Care Code ED Screen Printing Paster for Prasanthg Anamaria
[2024-05-14 16:00] LABS: Basophils % 0.8 %; Eosinophils # 0.2 10^3/uL (0.0-0.8); Eosinophils % 4.5 %; Hematocrit 40.7 % (37-53); Lymphocytes # 1.3 10^3/uL (0.8-4.8); Lymphocytes % 27.2 %; Mean Corpuscular HGB Conc 33.2 g/dL (30-55); Mean Corpuscular Hemoglobin 30.2 pg (27-33); Mean Corpuscular Volume 91.1 fl (82-101); Mean Platelet Volume 9.7 fL (7.4-10.4); Monocytes # 0.4 10^3/uL (0.2-0.9); Monocytes % 7.4 %; Neutrophils # 2.81 10^3/uL (1.8-7.7); Neutrophils % 59.7 %; Nucleated Red Blood Cells % 0 %; Platelet Count 140 10^3/cmm (157-399); Red Blood Count 4.47 10^6/uL (3.85-5.65); Red Cell Distribution Width 13.5 % (12.1-15.1); White Blood Count 4.71 10^3/uL (3.29-11.43)
[2024-05-14] MEDS: aspirin 81 mg Chew Tablet 324 MG PO (16:04)
[2024-05-14 16:21] LABS: Troponin(5th) Baseline 15 ng/L (0-15)
[2024-05-14 16:25] LABS: Alanine Aminotransferase 10 U/L (0-41); Albumin Level 4.2 g/dL (3.5-5.2); Alkaline Phosphatase 79 U/L (40-130); Aspartate Amino Transferase 18 U/L (0-40); Blood Urea Nitrogen 31 mg/dL (8-23); Calcium 9.3 mg/dL (8.5-10.5); Carbon Dioxide 25 mmol/L (22-29); Chloride 101 mmol/L (98-107); Creatinine Clr Calc Pharmacy 38.3728; Glucose 254 mg/dL (65-115); NT Pro B Type Natriuretic Pept 278 pg/mL (0-450); Osmolality Calculated 297 mOsm/kg (285-295); Sodium 136 mmol/L (136-145); Total Bilirubin 1.1 mg/dL (0.15-1.2); Total Protein 6.2 g/dL (6.6-8.7)
[2024-05-14 16:26] LABS: Anion Gap 14.7 (5-19); Potassium 4.7 mmol/L (3.5-5.1)
[2024-05-14 17:20] LABS: D Dimer 6.17 ug/mLFEU (0-0.59)
--- NOTE | 2024-05-14 17:22 | CTR_ITS ---
PROCEDURE INFORMATION: Exam: CTA Chest With Contrast Exam date and time: 05/14/2024 5:28 PM Age: 88 years old Clinical indication: Pain; Chest pressure; Additional info: Chest pain, elevated d dimer TECHNIQUE: Imaging protocol: Computed tomographic angiography of the chest with contrast. Exam focused on the arteries. 3D rendering (Not supervised by radiologist): MIP and/or 3D reconstructed images were created by the technologist. Radiation optimization: All CT scans at this facility use at least one of these dose optimization techniques: automated exposure control; mA and/or kV adjustment per patient size (includes targeted exams where dose is matched to clinical indication); or iterative reconstruction. Contrast material: OMNIPAQUE 350; Contrast volume: 75 ml; Contrast route: INTRAVENOUS (IV); COMPARISON: CT ang ches abdpel [id number] 05/25/2018 1:39 AM RADIATION DOSE METRICS: Total DLP (mGy-cm): 373.51 FINDINGS: Pulmonary arteries: The pulmonary arteries are well opacified with contrast. No intraluminal soft tissue filling defects are seen to suggest a pulmonary embolism. Aorta: The thoracic aorta is normal in caliber with mild atherosclerotic calcification. No aneurysm. Lungs: There are mild emphysematous changes throughout the lungs with coarsened interstitial markings peripherally. No dense focal consolidation is seen. Pleural spaces: Unremarkable. No pneumothorax. No pleural effusion. Heart: Unremarkable. No cardiomegaly. No pericardial effusion. Coronary arteries: There is moderate coronary arterial calcification. Lymph nodes: Unremarkable. No enlarged lymph nodes. Diaphragm: There is a small hiatal hernia. Liver: There is very slight surface nodularity to the liver suspicious for cirrhosis or other hepatic parenchymal disease. The caudate lobe is prominent. Kidneys: There are two 4 mm stones in the visualized upper left kidney. There are simple cysts within the kidneys bilaterally, the largest on the left measuring 6 cm and the largest on the right measuring 5.3 cm. These are incompletely imaged on this exam. A subcentimeter hyperdense lesion is seen within the right kidney, likely hemorrhagic cyst. No significant hydronephrosis is seen. Bones/joints: There are degenerative changes throughout the thoracic spine. Soft tissues: Unremarkable. CT/CT angio chest PE protcl [id number] IMPRESSION: 1. 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 2. No dense focal consolidation. 3. No pulmonary embolism detected. 4. Moderate coronary arterial calcification. 5. Very slight surface nodularity to the liver and prominence of the caudate lobe suspicious for cirrhosis or other hepatic parenchymal disease. Please correlate clinically. 6. Several bilateral renal cysts including a suspected subcentimeter hemorrhagic cyst on the right. The kidneys are incompletely imaged on this exam. 7. Tiny nonobstructing left renal calculi. COMMENTS: Consistent with the [employer]'s Incidental Findings Committee white paper (J Am Taya Radiol 2018): Any incidental renal lesion less than 1 cm or classified as too small to characterize, or any incidental cystic renal lesion characterized as simple-appearing, is likely benign. No follow-up imaging is recommended for these lesions per consensus recommendations based on imaging criteria.
--- NOTE | 2024-05-14 17:28 | P.HP_ITS ---
Providers/Chief Complaint 2 Primary Care Provider: Peter Vidales MD Chief Complaint: chest pains History of Present Illness Brandan Escudero is a 88 year old male presenting to the ER wihc/o chest pain. He has been experiencing intermittent left arm discomfort with exertion over past few days. Today as he was out for his usual walk he experienced chest discomfort radiating into the arm. Brought to ER for concerns of chest pain. EKG without acute ST-T wave changes. Trop baseline at 15, delta not significant at 2 hrs. D dimer elevated so had a CT chest , negative for PE. No known h/o CAD. h/o htn+, h/o DM+ Review of Systems 2 General: Reports: 10 or more systems reviewed and unremarkable except in HPI and below Const: Denies: fever(s), chills or body aches Eyes: Denies: change in vision, blurry vision or photophobia ENMT: Reports: hoarseness; Denies: throat pain, enlarged tonsils, odynophagia or nasal congestion Card: Denies: chest pain, palpitations, irregular heart rhythm, edema, swelling of feet/ankles, lightheadedness, pre-syncope, dyspnea on exertion or orthopnea Resp: Denies: dyspnea, productive cough, non-productive cough, wheezing, stridor, pain on inspiration, change in phlegm color, hemoptysis or chest congestion GI: Denies: abdominal pain, nausea, vomiting, hematemesis, coffee ground emesis, dysphagia, heartburn, diarrhea, constipation, GI cramping, change in stool character, hematochezia or melena : Denies: flank pain, dysuria, urinary frequency, urinary urgency, urinary hesitancy or hematuria Musc: Denies: neck pain, back pain, extremity pain, joint swelling, joint warmth or deformity Neuro: Denies: headache(s), numbness in extremities, weakness in extremities, sensory changes, difficulty walking, frequent falls, dizziness, vertigo, behavioral changes, Slurred speech present or seizure-like activity Psych: Denies: anxiety, depression, suicidal ideation or homicidal ideation Endo: Denies: polyuria, polydipsia, tired all the time, cold intolerance or hot flashes Saulo/Lymph: Denies: easy bruising or easy bleeding Medications/Allergies Home Medications Medication Instructions Recorded Confirmed Last Taken Type metformin 500 mg tablet 500 mg PO BID 01/21/21 05/14/24 05/14/24 History multivitamin 1 tab PO DAILY 01/22/21 05/14/24 05/14/24 History pioglitazone 15 mg tablet (Actos) 15 mg PO DAILY 01/22/21 05/14/24 05/14/24 History glimepiride 4 mg tablet 4 mg PO BID 02/05/22 05/14/24 05/14/24 History Diabetic Shoes with 3 pairs of #1 ea 10/16/22 05/14/24 Unknown Rx inserts metoprolol succinate 50 mg 50 mg PO BID #180 tabs 03/01/23 05/14/24 05/14/24 Rx tablet,extended release 24 hr aspirin 81 mg tablet,delayed 81 mg PO QPM 05/14/24 05/14/24 05/13/24 History release cyanocobalamin (vitamin B-12) 1,000 mcg PO DAILY 05/14/24 05/14/24 05/14/24 History 1,000 mcg tablet (Vitamin B-12) cyanocobalamin (vitamin B-12) 5,000 mcg sublingual DAILY 05/14/24 05/14/24 05/14/24 History 5,000 mcg sublingual tablet (Vitamin B-12) dxtnwwqdryd-rlpwpyqwv-lxvw577-hyal 1 tab PO QPM 05/14/24 05/14/24 05/13/24 History 750 mg-100 mg-125 mg-1.65 mg tablet (Glucosamine Chondroit Complx Advan) levothyroxine 125 mcg tablet 125 mcg PO QAM 05/14/24 05/14/24 05/14/24 History lisinopril 5 mg tablet 5 mg PO QAM 05/14/24 05/14/24 05/14/24 History lutein 20 mg tablet 20 mg PO QPM 05/14/24 05/14/24 05/13/24 History omeprazole 20 mg capsule,delayed 20 mg PO DAILY 05/14/24 05/14/24 05/14/24 History release vitamins A,C,K-bfxy-cpjojt 2,148 1 tab PO QPM 05/14/24 05/14/24 05/13/24 History mcg-113 mg-45 mg-17.4 mg tablet (PreserVision AREDS) Allergies Allergy/AdvReac Type Severity Reaction Status Date / Time atorvastatin [From Lipitor] AdvReac Intermediate Unknown Verified 05/14/24 15:28 PFSH Acute 2 PFSH: Medical History Macular degeneration Type 2 diabetes mellitus Hypertension Hypothyroidism Hyperlipidemia Surgical History History of meniscectomy of right knee Social History Smoking and tobacco/nicotine status: unknown if used tobacco/nicotine Vitals/I&O/Wt Last Vital Signs Temp 97.9 F 05/14/24 15:24 Pulse 55 L 05/14/24 17:00 Resp 23 H 05/14/24 17:00 BP 106/52 05/14/24 17:00 Pulse Ox 93 05/14/24 17:00 O2 Del Method Room Air 05/14/24 15:24 Weight last 48 hrs Weight 76.657 kg Physical Exam 2 Narrative: General: No acute distress, AO x3 HEENT: PERRLA, pupils bilaterally equal and reactive, pallors not present Chest: Normal vesicular breath sounds, no added sounds, equal good air entry bilaterally CVS: S1-S2 regular, no murmurs, no tachycardia, no gallops, no rubs Abdomen: Soft, nontender, no organomegaly, bowel sounds present Neuro: No focal deficits, no facial deformity, AO x3, power 5/5 in all limbs Data 05/14/24 15:40 05/14/24 15:40 A&P Assessment and plan (1) Chest pain: Admit to CSU telemetry monitoring EKG and Troponin series IF troponin without significant elevattion, then proceed with stress test Symptoms concerning for anginal chest pain CTA negative for PE continue ASA 81mg po daily check hba1c and lipid panel Qualifiers: Chest pain type: unspecified Qualified Code(s): R07.9 - Chest pain, unspecified Attestations 2 Medical Necessity Statement*: less than 2 midnight stay anticipated Coding Level of Care Code Acute Code for [facility] Fwd Diagnoses Chest pain R07.9 Chest pain type: unspecified
[2024-05-14] MEDS: iohexol 350 mg/mL 500 mL Btl (per mL) IV (17:31)
--- NOTE | 2024-05-14 17:33 | ECG_ITS ---
[facility] 2024-05[facility]14 Pat Name: Brandan Escudero Department: Room: Gender: Male Imaging Assistant: : 1935 Requested By: Jorge Luis Ribeiro Order Number: [id number] Samuels MD: Wayne Street M.D. Measurements Intervals [place] Rate: 63 P: 59 TN: 295 QRS: -31 QRSD: 109 T: 15 QT: 390 QTc: 401 Interpretive Statements SINUS RHYTHM WITH FIRST DEGREE AV BLOCK WITH FREQUENT SUPRAVENTRICULAR PREMATURE COMPLEXES LEFT AXIS DEVIATION [QRS AXIS < -30] Compared to ECG 05/14/2024 15:18:23 First degree AV block now present Left-axis deviation now present Atrial fibrillation no longer present Electronically Signed On 05-14-2024 23:20:35 WOODWORKING MACHINE OPERATOR by Wayne Street M.D. [id number]
[2024-05-14] MEDS: predniSONE 20 mg Tablet 60 MG PO (17:49)
[2024-05-14 17:58] LABS: Troponin 5 2HR 12.81 ng/L (0-15)
[2024-05-14 17:59] LABS: Troponin 5 2HR Delta -2.19 ABS# (0-10)
--- NOTE | 2024-05-14 18:36 | ECG_ITS ---
[facility] Test Date: 2024-05-16 Pat Name: Brandan Escudero Department: Room: Gender: Male Marketing Communications Coordinator: : 1935 Requested By: Diamond Mejia Order Number: [id number] Arvind MD: Wayne Street M.D. Interpretive Statements Lung unchanged pre/post procedure; Intraprocedure shortess of breath; Symptoms resoled by discharge [id number]
--- NOTE | 2024-05-14 19:41 | PC.NURSE ---
ASSUMED CARE OF PT AT 1900
[2024-05-14 20:58] LABS: Glucose Point of Care 207 mg/dL (70-110)
[2024-05-14] MEDS: insulin lispro 100 unit/1 mL SUBCUT (21:32)
[2024-05-14 22:33] LABS: Troponin 5 6HR 11.71 ng/L (0-15); Troponin 5 6HR Delta -3.29 ng/L (0-12)
[2024-05-15] VITALS (7 sets, daily range): BP systolic 117–142; BP diastolic 67–72; PULSE 71–94; RESP 15–19; TEMP 36.3–36.8; O2SAT 93–98
[2024-05-15] MEDS: levothyroxine 125 mcg Tablet PO (06:06)
[2024-05-15 06:37] LABS: Glucose Point of Care 242 mg/dL (70-110)
[2024-05-15] MEDS: metoprolol succinate ER (24 HR) 50 mg Tablet PO ×2 (08:28→18:29)
[2024-05-15] MEDS: insulin lispro 100 unit/1 mL SUBCUT ×4 (08:28→21:22)
--- NOTE | 2024-05-15 11:17 | PC.NURSE ---
Patient refuses SCDs due to up walking laps in the [place].
[2024-05-15 11:38] LABS: Glucose Point of Care 202 mg/dL (70-110)
[2024-05-15 13:09] LABS: Alanine Aminotransferase 9 U/L (0-41); Albumin Level 4.2 g/dL (3.5-5.2); Alkaline Phosphatase 75 U/L (40-130); Anion Gap 17.7 (5-19); Aspartate Amino Transferase 15 U/L (0-40); Blood Urea Nitrogen 26 mg/dL (8-23); Calcium 9.2 mg/dL (8.5-10.5); Carbon Dioxide 24 mmol/L (22-29); Chloride 97 mmol/L (98-107); Creatinine Clr Calc Pharmacy 41.8387; Globulin 2.1 g/dL (1.3-4.6); Glucose 274 mg/dL (65-115); Osmolality Calculated 295 mOsm/kg (285-295); Potassium 3.7 mmol/L (3.5-5.1); Sodium 135 mmol/L (136-145); Total Bilirubin 1.3 mg/dL (0.15-1.2); Total Protein 6.3 g/dL (6.6-8.7)
[2024-05-15 16:47] LABS: Glucose Point of Care 141 mg/dL (70-110)
--- NOTE | 2024-05-15 18:41 | USCV_ITS ---
Brandan Escudero Age: 88 Gender: M : 1935 Exam Date: 05/15/2024 10:12 Ordering Phys: Diamond Mejia MD Technologist: Gómez Lloyd [place] [facility] [place]: [place] BP: 142 / 68 HR: 76 Rhythm: Sinus Technical Quality: Adequate MEASUREMENTS (Male / Female) Normal Values 2D ECHO LV Diastolic Diameter PLAX 4.7 cm 4.2 - 5.9 / 3.9 - 5.3 cm IVS Diastolic Thickness 1.4 cm 0.6 - 1.0 / 0.6 - 0.9 cm IVS Systolic Thickness 1.7 cm LVPW Diastolic Thickness 1.8 cm 0.6 - 1.0 / 0.6 - 0.9 cm LVPW Systolic Thickness 2.5 cm LVOT Diameter 2.3 cm LV Ejection Fraction 2D Teich 68.3 % LV Ejection Fraction MOD 4C 57.3 % LV Ejection Fraction MOD 2C 52.7 % LV Ejection Fraction 2C AL 53.1 % LA Diameter 3.4 cm RA Systolic Volume 4C AL 33.1 ml RA Systolic Volume 4C MOD 31.5 ml LA Sys Volume AL 42.5 cm cubed LA Sys Volume Index AL 21.3 cm cubed/m squared Aorta at Sinotubular Diameter 2.3 cm IVC Diameter 1.5 cm M-MODE LA Ao Ratio MM 1.1 AV Cusp Separation MM 1.6 cm DOPPLER AV Peak Velocity 112.3 cm/s LVOT Peak Velocity 76.0 cm/s AV Area Cont Eq vti 2.8 cm squared AV Area Cont Eq pk 2.8 cm squared MV Peak Velocity 115.0 cm/s MV Area PHT 1.9 cm squared Mitral E to A Ratio 0.4 TV Peak Velocity 244.0 cm/s TR Peak Velocity 250.0 cm/s TR Peak Gradient 25.0 mmHg TR Mean Velocity 176.0 cm/s TR Mean Gradient 14.3 mmHg TR Velocity Time Integral 70.0 cm PV Peak Velocity 117.0 cm/s RV Ejection Time 0.3 s FINDINGS Left Ventricle Left ventricle is normal in size. LV systolic function is normal with EF 50-55%. No regional wall motion abnormalities are seen. Grade 1 diastolic dysfunction Right Ventricle Normal in size and function Right Atrium Normal in size Left Atrium Normal in size Mitral Valve Structurally normal mitral valve. Trace mitral regurgitation. Aortic Valve Aortic valve is thickened. No significant stenosis. Trace aortic regurgitation. Tricuspid Valve Mild tricuspid regurgitation. Pulmonary artery systolic pressure is normal Pulmonic Valve Mild pulmonic regurgitation. Pericardium Normal Aorta Normal in size IVC Appears to be normal CONCLUSIONS LV systolic function is normal with EF of 50-55% Grade 1 diastolic dysfunction Trace mitral regurgitation Trace aortic regurgitation Mild tricuspid regurgitation Mild pulmonic regurgitation No comparison studies are available. Wayne Street MD (Electronically Signed) Final Date: 15 May 2024 11:07 S
--- NOTE | 2024-05-15 19:44 | PC.NURSE ---
Pulled cardiac strip at 1900 and placed in the the chart
[2024-05-15 20:25] LABS: Glucose Point of Care 243 mg/dL (70-110)
--- NOTE | 2024-05-15 22:05 | ECG_ITS ---
[facility] Test Date: 2024-05-16 Pat Name: Brandan Escudero Department: Room: 277 Gender: Male Power Plant Technician: : 1935 Requested By: Diamond Mejia Order Number: [id number] Arvind MD: Wayne Street M.D. Interpretive Statements LEXISCAN: Procedure: At the baseline, the blood pressure was 118/93 mmHg with a heart rate of 74bpm. The electrocardiogram showed normal sinus rhythm, normal axis with normal ST and T's. The Lexiscan was infused over a period of 20 seconds. A total of 0.4 mg of Lexiscan was infused. The stress phase was continued for a total of 5 minutes. Heart rate was at the end of stress phase was 79 bpm and a blood pressure of 138/101 mmHg. The EKG at the peak infusion revealed normal sinus rhythm with no significant ST-T wave changes. Sestamibi was injected 20 seconds after the Lexiscan infusion. Blood pressure at the end of recovery phase was 153/79 mmHg with a heart rate of 74 bpm. Conclusion: 1. Normal EKG response to Lexiscan infusion 2. No Lexiscan induced chest pain or cardiac arrhythmia. 3. Normal blood pressure and heart rate response. 4. Sestamibi/sestamibi perfusion scan pending; see separate report. Electronically Signed On 05-21-2024 23:34:48 FLOOR SANDER by Wayne Street M.D. [id number]
--- NOTE | 2024-05-15 22:11 | P.PN_ITS ---
Subjective 2 Subjective: no acute interim complaints ,no further chest pain today Vitals/I&O/Wt Last Vital Signs Temp 98.2 F 05/15/24 20:00 Pulse 94 05/15/24 20:00 Resp 19 H 05/15/24 20:00 BP 118/67 05/15/24 20:00 Pulse Ox 94 05/15/24 20:00 O2 Del Method Room Air 05/15/24 20:00 05/15/24 05/15/24 05/15/24 06:59 14:59 22:59 Intake Total 120 / 120 200 / 320 Balance 120 / 120 200 / 320 Weight last 48 hrs Weight 79.016 kg Weight 76.657 kg Weight 76.657 kg Physical Exam 2 Narrative: General: No acute distress, AO x3 HEENT: PERRLA, pupils bilaterally equal and reactive, pallors not present Chest: Normal vesicular breath sounds, no added sounds, equal good air entry bilaterally CVS: S1-S2 regular, no murmurs, no tachycardia, no gallops, no rubs Abdomen: Soft, nontender, no organomegaly, bowel sounds present Neuro: No focal deficits, no facial deformity, AO x3, power 5/5 in all limbs Data 05/14/24 15:40 05/15/24 12:46 A&P Assessment and plan (1) Chest pain: Admit to CSU telemetry monitoring EKG and Troponin series IF troponin without significant elevattion, then proceed with stress test Symptoms concerning for anginal chest pain CTA negative for PE continue ASA 81mg po daily check hba1c and lipid panel Qualifiers: Chest pain type: unspecified Qualified Code(s): R07.9 - Chest pain, unspecified Plan 05/15/24 : no chest pain today, EKG with 1st degree Heart block, no acute ST- wave changes. trop series 15--> 12.8--> 11, no significant delta. Plan for stress test in am. Cr stable to improving at 1.3. Attestations 2 Medical Necessity Statement*: plan for stress test in am to evalaute for angina in patient with multiple comorbidities Coding Level of Care Code Acute Code for Chg Fwd Diagnoses Chest pain R07.9 Chest pain type: unspecified
[2024-05-16] VITALS: BP 103/62; PULSE 83; RESP 18; TEMP 36.3; O2SAT 93
[2024-05-16 04:00] VITALS: BP 162/78; PULSE 78; RESP 17; TEMP 36.7; O2SAT 96
[2024-05-16 05:31] LABS: Basophils % 0.8 %; Eosinophils # 0.1 10^3/uL (0.0-0.8); Eosinophils % 2.7 %; Hematocrit 40.4 % (37-53); Lymphocytes # 1.2 10^3/uL (0.8-4.8); Lymphocytes % 23.8 %; Mean Corpuscular HGB Conc 33.4 g/dL (30-55); Mean Corpuscular Hemoglobin 30.2 pg (27-33); Mean Corpuscular Volume 90.4 fl (82-101); Mean Platelet Volume 9.5 fL (7.4-10.4); Monocytes # 0.4 10^3/uL (0.2-0.9); Neutrophils # 3.36 10^3/uL (1.8-7.7); Neutrophils % 64.3 %; Nucleated Red Blood Cells % 0 %; Platelet Count 115 10^3/cmm (157-399); Red Blood Count 4.47 10^6/uL (3.85-5.65); Red Cell Distribution Width 13.7 % (12.1-15.1); White Blood Count 5.22 10^3/uL (3.29-11.43)
[2024-05-16] MEDS: levothyroxine 125 mcg Tablet PO (05:34)
[2024-05-16 05:41] LABS: Estmated Average Glucose 166; Hemoglobin A1C 7.4 % (4.0-6.0)
[2024-05-16 05:44] LABS: Alanine Aminotransferase 10 U/L (0-41); Alkaline Phosphatase 71 U/L (40-130); Anion Gap 14.7 (5-19); Aspartate Amino Transferase 15 U/L (0-40); Blood Urea Nitrogen 29 mg/dL (8-23); Calcium 9.4 mg/dL (8.5-10.5); Carbon Dioxide 26 mmol/L (22-29); Chloride 102 mmol/L (98-107); Creatinine Clr Calc Pharmacy 45.3253; Globulin 2.2 g/dL (1.3-4.6); Glucose 149 mg/dL (65-115); Osmolality Calculated 297 mOsm/kg (285-295); Potassium 3.7 mmol/L (3.5-5.1); Sodium 139 mmol/L (136-145); Total Bilirubin 1.4 mg/dL (0.15-1.2); Total Protein 6.2 g/dL (6.6-8.7)
[2024-05-16] MEDS: regadenoson 0.4 Mg/5 ml Syringe IVP (07:14)
[2024-05-16] MEDS: ondansetron 2 mg/ML SDV 2 mL 4 MG IVP (07:22)
[2024-05-16 07:25] LABS: Chol HDL Ratio 3.38 mg/dL (1.0-5.00); Cholesterol 162 mg/dL (0-200); HDL Cholesterol 48 mg/dL (60-100); LDL Cholesterol Calculated 98 mg/dL (50-129); LDL HDL Ratio 2.04 RATIO (0.00-3.22); Triglycerides 82 mg/dL (0-150)
[2024-05-16] MEDS: aminophylline 25 mg/mL SDV 20 mL IVP (07:25)
[2024-05-16 07:27] VITALS: BP 153/79; PULSE 74
[2024-05-16 08:35] VITALS: BP 154/58; PULSE 84; RESP 18; O2SAT 94
[2024-05-16 09:09] LABS: Glucose Point of Care 243 mg/dL (70-110)
[2024-05-16] MEDS: metoprolol succinate ER (24 HR) 50 mg Tablet PO (09:21)
[2024-05-16] MEDS: insulin lispro 100 unit/1 mL SUBCUT ×2 (09:21→11:19)
[2024-05-16] MEDS: aspirin 81 mg EC Tablet PO (09:21)
[2024-05-16] MEDS: pantoprazole DR 40 mg Tablet PO (09:21)
[2024-05-16 10:48] LABS: Glucose Point of Care 263 mg/dL (70-110)
[2024-05-16 11:10] VITALS: BP 115/62; PULSE 73; RESP 17; TEMP 36.6; O2SAT 97
--- NOTE | 2024-05-16 13:06 | PM.DCS ---
Discharge Providers Date of Admission: 05/14/24 18:15 Date of Discharge: May 16, 2024 Attending Provider at Admission: Diamond Mejia MD Attending Provider at Discharge: Eryn Lancaster MD Primary Care Provider: Peter Vidales MD Diagnoses at Discharge Discharge Diagnosis (1) Chest pain: Status: Resolved Qualifiers: Chest pain type: unspecified Qualified Code(s): R07.9 - Chest pain, unspecified Reason for Visit Reason for Visit: chest pains Hospital Course Hospital Course Patient was admitted with chest pain. Delta troponin at 6 hours was negative. Creatinine stable at 1.3. He underwent a stress test which did not show evidence of ischemia. There was attenuation artifact that improved on prone imaging. Echo did not show any wall motion abnormalities. Patient chest pain-free on day of discharge sitting up on the chair beside his bed dressed up in his clothes ready to go home. Patient has to follow-up with primary care doctor going forward. Physical Exam Narrative: General: No acute distress, AO x3 HEENT: PERRLA, pupils bilaterally equal and reactive, pallors not present Chest: Normal vesicular breath sounds, no added sounds, equal good air entry bilaterally CVS: S1-S2 regular, no murmurs, no tachycardia, no gallops, no rubs Abdomen: Soft, nontender, no organomegaly, bowel sounds present Neuro: No focal deficits, no facial deformity, AO x3, Discharge Data Studies Completed and Pending Completed Studies During Hospitalization Category Date Time Status CT angio chest PE protcl [id number] Stat Cat Scan 05/14/24 17:22 Completed Cardiac Stress Test MIBI [Sestamibi Stress Test Request Exams 05/14/24 18:36 Draft ] Stat Sestamibi Stress Test Request Routine Exams 05/15/24 22:05 Draft XR chest 1V portable [id number] Stat Exams 05/14/24 15:33 Completed NM ben perf SPECT r/s* [id number] Routine Nuc Med 05/16/24 18:40 Completed CV. echo complete* [id number] Stat Ultrasound 05/15/24 18:41 Completed Radiology Impressions Chest X-Ray 05/14/24 15:33 IMPRESSION: 1. Mild pulmonary hypoinflation. 2. No radiographic evidence for acute cardiopulmonary disease. Chest CTA 05/14/24 17:22 IMPRESSION: 1. 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 2. No dense focal consolidation. 3. No pulmonary embolism detected. 4. Moderate coronary arterial calcification. 5. Very slight surface nodularity to the liver and prominence of the caudate lobe suspicious for cirrhosis or other hepatic parenchymal disease. Please correlate clinically. 6. Several bilateral renal cysts including a suspected subcentimeter hemorrhagic cyst on the right. The kidneys are incompletely imaged on this exam. 7. Tiny nonobstructing left renal calculi. COMMENTS: Consistent with the [employer]'s Incidental Findings Committee white paper (J Am Taya Radiol 2018): Any incidental renal lesion less than 1 cm or classified as too small to characterize, or any incidental cystic renal lesion characterized as simple-appearing, is likely benign. No follow-up imaging is recommended for these lesions per consensus recommendations based on imaging criteria. Laboratory Results WBC 5.22 10^3/uL (3.29-11.43) 05/16/24 05:18 RBC 4.47 10^6/uL (3.85-5.65) 05/16/24 05:18 Hgb 13.50 g/dL (11.27-16.99) 05/16/24 05:18 Hct 40.4 % (37-53) 05/16/24 05:18 MCV 90.4 fl (82-101) 05/16/24 05:18 MCH 30.2 pg (27-33) 05/16/24 05:18 MCHC 33.4 g/dL (30-55) 05/16/24 05:18 RDW 13.7 % (12.1-15.1) 05/16/24 05:18 Plt Count 115 10^3/cmm (157-399) L 05/16/24 05:18 MPV 9.5 fL (7.4-10.4) 05/16/24 05:18 Neut % (Auto) 64.3 % 05/16/24 05:18 Lymph % (Auto) 23.8 % 05/16/24 05:18 Grainger % (Auto) 8.0 % 05/16/24 05:18 Eos % (Auto) 2.7 % 05/16/24 05:18 Baso % (Auto) 0.8 % 05/16/24 05:18 Neut # (Auto) 3.36 10^3/uL (1.8-7.7) 05/16/24 05:18 Lymph # (Auto) 1.2 10^3/uL (0.8-4.8) 05/16/24 05:18 Grainger # (Auto) 0.4 10^3/uL (0.2-0.9) 05/16/24 05:18 Eos # (Auto) 0.1 10^3/uL (0.0-0.8) 05/16/24 05:18 Baso # (Auto) 0.0 10^3/uL (0.0-0.1) 05/16/24 05:18 Nucleated RBC % (auto) 0 % 05/16/24 05:18 Nucleated RBCs # 0.0 /100WBC 05/16/24 05:18 D-Dimer 6.17 ug/mLFEU (0-0.59) H 05/14/24 15:40 Sodium 139 mmol/L (136-145) 05/16/24 05:18 Potassium 3.7 mmol/L (3.5-5.1) 05/16/24 05:18 Chloride 102 mmol/L (98-107) 05/16/24 05:18 Carbon Dioxide 26 mmol/L (22-29) 05/16/24 05:18 Anion Gap 14.7 (5-19) 05/16/24 05:18 BUN 29 mg/dL (8-23) H 05/16/24 05:18 Creatinine 1.2 mg/dL (0.7-1.2) 05/16/24 05:18 GFR Calculation Not Reportable 05/16/24 05:18 Glucose 149 mg/dL (65-115) H 05/16/24 05:18 POC Glucose 263 mg/dL (70-110) H 05/16/24 10:42 Estimat Average Glucose 166 05/16/24 05:18 Hemoglobin A1c 7.4 % (4.0-6.0) H 05/16/24 05:18 Calculated Osmolality 297 mOsm/kg (285-295) H 05/16/24 05:18 Calcium 9.4 mg/dL (8.5-10.5) 05/16/24 05:18 Total Bilirubin 1.4 mg/dL (0.15-1.2) H 05/16/24 05:18 AST 15 U/L (0-40) 05/16/24 05:18 ALT 10 U/L (0-41) 05/16/24 05:18 Alkaline Phosphatase 71 U/L (40-130) 05/16/24 05:18 Troponin T Baseline 15 ng/L (0-15) 05/14/24 15:40 Troponin T 120 Minute 12.81 ng/L (0-15) 05/14/24 17:25 Delta Troponin T -2.19 ABS# (0-10) L 05/14/24 17:25 Troponin T Hi Sens 6Hr 11.71 ng/L (0-15) 05/14/24 21:50 Troponin T Hi Sens 6Hr Delta -3.29 ng/L (0-12) L 05/14/24 21:50 NT-Pro-B Natriuret Pep 278 pg/mL (0-450) 05/14/24 15:40 Total Protein 6.2 g/dL (6.6-8.7) L 05/16/24 05:18 Albumin 4.0 g/dL (3.5-5.2) 05/16/24 05:18 Globulin 2.2 g/dL (1.3-4.6) 05/16/24 05:18 Triglycerides 82 mg/dL (0-150) 05/16/24 05:18 Cholesterol 162 mg/dL (0-200) 05/16/24 05:18 LDL Cholesterol, Calc 98 mg/dL (50-129) 05/16/24 05:18 HDL Cholesterol 48 mg/dL (60-100) L 05/16/24 05:18 LDL/HDL Ratio 2.04 RATIO (0.00-3.22) 05/16/24 05:18 Cholesterol/HDL Ratio 3.38 mg/dL (1.0-5.00) 05/16/24 05:18 Vitals Last Vital Signs Temp 97.8 F 05/16/24 11:10 Pulse 73 05/16/24 11:10 Resp 17 05/16/24 11:10 BP 115/62 05/16/24 11:10 Pulse Ox 97 05/16/24 11:10 O2 Del Method Room Air 05/16/24 11:10 Discharge Plan Discharge Patient Disposition: Home Condition: Stable Prescriptions: Continued metformin 500 mg tablet 500 mg PO BID pioglitazone [Actos] 15 mg tablet 15 mg PO DAILY multivitamin Tablet 1 tab PO DAILY glimepiride 4 mg tablet 4 mg PO BID (DME) Diabetic Shoes with 3 pairs of inserts See Rx Instructions .Route .MEDSUPPLY Qty: 1 0RF Rx Instructions: As directed to HOME metoprolol succinate 50 mg tablet extended release 24 hr 50 mg PO BID Qty: 180 3RF cyanocobalamin (vitamin B-12) [Vitamin B-12] 1,000 mcg Tablet 1,000 mcg PO DAILY aspirin 81 mg Tablet,Delayed Release (Dr/Ec) 81 mg PO QPM levothyroxine 125 mcg Tablet 125 mcg PO QAM omeprazole 20 mg Capsule,Delayed Release(Dr/Ec) 20 mg PO DAILY lisinopril 5 mg Tablet 5 mg PO QAM Glucos Chond Cplx Advanced 750 mg-100 mg- 125 mg-1.65 mg Tablet 1 tab PO QPM PreserVision AREDS 2,148 mcg-113 mg-45 mg-17.4mg Tablet 1 tab PO QPM cyanocobalamin (vitamin B-12) [Vitamin B-12] 5,000 mcg Tablet, Sublingual 5,000 mcg SUBLINGUAL DAILY lutein 20 mg Tablet 20 mg PO QPM Rx Instructions: give with meal/snack Discharge Orders: Discharge Order (Routine); Ordered 05/16/24 Ordered By: Eryn Lancaster Referrals: Peter Vidales MD [Primary Care Provider] - 4-7 days (We have notified your physician's clinic of the need for a follow-up appointment to be scheduled. If you have not heard from them within the next 2 business days, please call them directly. ) Discharge Diet: Cardiac and Diabetic Discharge Activity: Resume usual activity Patient Instructions: Chest Pain (DC), Upper Respiratory Infection (DC), Opioid Safety Discharge Attestations Time Spent in Discharge Care*: greater than 30 min Quality Metrics Clinical Quality Measures [ No reported AMI, CVA or VTE this stay] Coding Level of Care Code Acute Code for g Fwd Diagnoses Chest pain R07.9 Chest pain type: unspecified
[2024-05-16 13:40] VITALS: BP 115/62; PULSE 73; RESP 16; TEMP 36.6; O2SAT 97
--- NOTE | 2024-05-16 18:40 | NMCV_ITS ---
NM ben perf SPECT r/s* [id number] Brandan Escudero Age: 88 Gender: M : 1935 Exam Date: 05/16/2024 18:40 Ordering Phys: Diamond Mejia MD Technologist: DAVID Balderas Exam Location: [facility] Indications: cp STRESS TEST Please see separate stress test report in [facility] for full findings IMAGE PROTOCOL Rest/Stress 1 Lexiscan Day Radiopharmaceutical Dose (mCi) Administration Site Administered by Rest: Tc-99m 10.9 IV Joana Alamo, COMPUTER ANIMATOR Sestamibi Stress:Tc-99m 32.8 IV Joana Alamo, COMPUTER ANIMATOR Sestamibi Rest: 16-May-2024 60 Discovery 630 Stress: 16-May-2024 30 Discovery 630 0.4mg Lexiscan. Images obtained in supine and prone position. SPECT RESULTS Technical Quality: Good Raw Data Analysis: Normal Image Corrections: No attenuation or motion correction applied Summed Stress Score: 0 Summed Rest Score: 1 Summed Difference Score: 0 PERFUSION FINDINGS There is reduced radiotracer uptake in the inferior wall that improves with prone imaging. This is consistent with attenuation artifact in inferior wall. No evidence of ischemia. FUNCTIONAL RESULTS (calculated via Gated SPECT) Stress Image LV EF (%): 57 Stress EDV (mL):87 TID: 0.73 Stress ESV (mL):37 FUNCTIONAL FINDINGS: There is normal left ventricular systolic function. IMPRESSIONS 1. Attenuation artifact seen in the inferior wall. No evidence of ischemia 2. LV systolic function is normal Wayne Street MD (Electronically Signed) Final Date: 16 May 2024 10:02 S
== END 2024-05-16 13:41 | disposition home or self-care (01) ==
LOC: ER 18:51 → MEDSURG 20:39
PROVIDERS: Admitting Provider Student in an Organized Health Care Education/Training Program; Emergency Provider Student in an Organized Health Care Education/Training Program; PCP Family Medicine; Visit Provider Internal Medicine
DX: R07.9 Chest pain, unspecified (principal); Z79.899 Other long term (current) drug therapy; Z79.82 Long term (current) use of aspirin; Z79.890 Hormone replacement therapy; Z88.8 Allergy status to other drugs, medicaments and biological substances; E11.9 Type 2 diabetes mellitus without complications; I10 Essential (primary) hypertension; E78.5 Hyperlipidemia, unspecified; E03.9 Hypothyroidism, unspecified; I44.0 Atrioventricular block, first degree; N28.1 Cyst of kidney, acquired; I25.10 Atherosclerotic heart disease of native coronary artery without angina pectoris; Z79.84 Long term (current) use of oral hypoglycemic drugs
CPT/HCPCS: 36415; 36416; 71045; 71275; 78452; 80053; 80061; 82962; 83036; 83880; 84484; 85025; 85378; 93005; 93306; 96372; 96374; 96375; 99285; A9500; G0378; J0280; J1815; J2405; J2785; J7512

== ENCOUNTER → 2024-06-22 09:03 | Outpatient (BNVA) | payer OTHER, MEDICARE, SELFPAY | PROVIDERS: PCP Family Medicine; Visit Provider Podiatrist Foot & Ankle Surgery | DX: E11.42 Type 2 diabetes mellitus with diabetic polyneuropathy (principal); B35.1 Tinea unguium; L84 Corns and callosities; G62.9 Polyneuropathy, unspecified; M20.41 Other hammer toe(s) (acquired), right foot; M20.42 Other hammer toe(s) (acquired), left foot; M79.604 Pain in right leg; Z79.84 Long term (current) use of oral hypoglycemic drugs | CPT/HCPCS: 11055; 11721 ==

== ENCOUNTER → 2024-07-27 07:43 | Outpatient (BNVA) | payer MEDICARE, SELFPAY | PROVIDERS: PCP Family Medicine; Visit Provider Family Medicine | DX: E11.9 Type 2 diabetes mellitus without complications (principal); E03.9 Hypothyroidism, unspecified; Z00.00 Encounter for general adult medical examination without abnormal findings; E78.5 Hyperlipidemia, unspecified | CPT/HCPCS: 80053; 80061; 83036; 84443; 85025 ==

== ENCOUNTER → 2024-08-24 09:35 | Outpatient (BNVA) | payer OTHER, SELFPAY | PROVIDERS: PCP Family Medicine; Visit Provider Podiatrist Foot & Ankle Surgery | DX: E11.42 Type 2 diabetes mellitus with diabetic polyneuropathy (principal); B35.1 Tinea unguium; L84 Corns and callosities; G62.9 Polyneuropathy, unspecified; M20.41 Other hammer toe(s) (acquired), right foot; M20.42 Other hammer toe(s) (acquired), left foot; Z79.84 Long term (current) use of oral hypoglycemic drugs | CPT/HCPCS: 11056; 11721; 99213 ==